=== PATIENT | male | born 1990 | race Hispanic/Latino ===

== ENCOUNTER 2018-05-08 03:18 | Emergency (ER) | payer OTHER ==
[2018-05-08 03:26] VITALS: TEMP 99.2
[2018-05-08 03:35] VITALS: O2SAT 98
--- NOTE | 2018-05-08 04:05 | ED PDOC ---
HPI: Psych/Substance Abuse Time Seen by Provider: 05/08/18 03:41 Chief Complaint (Nursing): Substance Abuse Chief Complaint (Provider): Substance Abuse ED Caveat: Intoxicated History Per: Patient, EMS History/Exam Limitations: intoxication Modifying Factor(s): Alcohol Additional Complaint(s): 28 y/o male brought to the ED by [facility] for intoxication. Patient admits to using alcohol and cocaine tonight. Patient states his found him passed out in the bathroom and she called the ambulance. Patient is unable to give history due to intoxication. No medical complaints. Past Medical History Reviewed: Historical Data, Nursing Documentation, Vital Signs Vital Signs: Last Vital Signs Temp 99.2 F 05/08/18 03:32 Pulse 74 05/08/18 03:32 Resp 18 05/08/18 03:32 BP 150/91 H 05/08/18 03:32 Pulse Ox 98 05/08/18 03:32 - Medical History Other PMH: Myocarditis - Family History Family History: States: No Known Family Hx - Allergies Allergies/Adverse Reactions: Allergies Allergy/AdvReac Type Severity Reaction Status Date / Time No Known Allergies Allergy Verified 05/08/18 03:35 Review of Systems Review Of Systems: ROS cannot be obtained secondary to pt's inabilty to answer questions. Physical Exam - Reviewed Nursing Documentation Reviewed: Yes Vital Signs Reviewed: Yes - Physical Exam Appears: Positive for: Well, Non-toxic, No Acute Distress Head Exam: Positive for: ATRAUMATIC, NORMOCEPHALIC Skin: Positive for: Normal Color, Warm, Dry Eye Exam: Positive for: EOMI, Normal appearance, PERRL Neck: Positive for: Normal, Painless ROM, Supple Cardiovascular/Chest: Positive for: Regular Rate, Rhythm. Negative for: Murmur Respiratory: Positive for: Normal Breath Sounds. Negative for: Respiratory Distress Gastrointestinal/Abdominal: Positive for: Normal Exam, Soft. Negative for: Tenderness Extremity: Positive for: Normal ROM. Negative for: Pedal Edema, Deformity Neurologic/Psych: Positive for: Alert, Oriented, Other (Slurred speech). Negative for: Motor/Sensory Deficits - Laboratory Results Result Diagrams: 05/08/18 04:30 05/08/18 04:30 - ECG O2 Sat by Pulse Oximetry: 98 (RA) Pulse Ox Interpretation: Normal Medical Decision Making Medical Decision Making: Time: 03:42 Initial Impression: 28 y/o intoxicated male Initial Plan: * EKG * Alcohol serum * CMP * Drug screen * CBC w/ diff 05:30 Labs reviewed no clinically significant abnormalities with exception of alcohol level. Patient is clinically sober for discharge in company of . Diagnosis is alcohol intoxication and cocaine abuse. Scribe Attestation: Documented by Ke Cha acting as a scribe for Kosta Gonzalez MD. Provider Scribe Attestation: All medical record entries made by the Scribe were at my direction and personally dictated by me. I have reviewed the chart and agree that the record accurately reflects my personal performance of the history, physical exam, medical decision making, and the department course for this patient. I have also personally directed, reviewed, and agree with the discharge instructions and disposition. Disposition - Clinical Impression Clinical Impression: Alcohol intoxication, Cocaine abuse - Patient ED Disposition Is Patient to be Admitted: No - Disposition Disposition: Routine/Home Disposition Time: 05:30 Condition: STABLE Additional Instructions: MIRACLE DELACRUZ, thank you for letting us take care of you today. Your provider was Kosta Gonzalez MD and you were treated for ETOH,SUBSTANCE ABUSE. The emergency medical care you received today was directed at your acute symptoms. If you were prescribed any medication, please fill it and take as directed. It may take several days for your symptoms to resolve. Return to the Emergency Department if your symptoms worsen, do not improve, or if you have any other problems. Please contact your doctor or call one of the physicians/clinics you have been referred to that are listed on the Patient Visit Information form that is included in your discharge packet. Bring any paperwork you were given at [facility] with you along with any medications you are taking to your follow up visit. Our treatment cannot replace ongoing medical care by a primary care provider outside of the emergency department. Thank you for allowing the [facility] team to be part of your care today. If you had an X-Ray or CT scan: A Radiologist will review the ED reading if any change in treatment is needed we will contact you. If you had a blood, urine, or wound culture: It will take several days for the results, if any change in treatment is needed we will contact you. If you had an STI test: It will take 48 hours for the results. Please call after 1 week if you have not heard back. Instructions: Cocaine Use Disorder, Alcohol Abuse and Alcoholism (DC) Forms: [facility] (Thai)
[2018-05-08] MEDS ORDERED: Sodium Chloride 0.9% 1,000 ML IV STA (04:12)
[2018-05-08 04:40] LABS: BASO % 0.5 % (0.0-2.0); EOS % 0.1 % (0.0-4.0); HEMOGLOBIN 14.8 g/dL (12.0-18.0); LYMPH # 1.1 K/uL (1.0-4.3); LYMPH % 11.3 % (20.0-40.0); MEAN CELL VOLUME 85.6 fl (80.0-94.0); MEAN CORPUSCULAR HEMOGLOBIN 29.6 pg (27.0-31.0); MEAN CORPUSCULAR HGB CONC 34.6 g/dL (33.0-37.0); MEAN PLATELET VOLUME 8.1 fl (7.2-11.7); MONO # 0.3 K/uL (0.0-0.8); MONO % 3.3 % (0.0-10.0); NEUT # 8.2 K/uL (1.8-7.0); NEUT % 84.8 % (50.0-75.0); NRBC % 0.3 % (0.0-0.0); RBC 5.01 Mil/uL (4.40-5.90); WHITE BLOOD COUNT 9.7 K/uL (4.8-10.8)
[2018-05-08 04:47] LABS: ALB/GLOB RATIO 1.5 (1.0-2.1); ALBUMIN 4.7 g/dL (3.5-5.0); ALT/SGPT 21 U/L (21-72); AST/SGOT 21 U/L (17-59); BLOOD UREA NITROGEN 11 mg/dl (9-20); CALCIUM 9.2 mg/dL (8.4-10.2); GFR NON-AFRICAN AMERICAN > 60
[2018-05-08 05:36] VITALS: BP 116/64; PULSE 65; RESP 16
--- NOTE | 2018-05-08 20:10 | CARD ---
APPROVED REPORT Date of service: 05/08/2018 EKG Measurement Heart [id number] <Conclusion> Normal sinus rhythm Normal Electrocardiogram
== END 2018-05-08 05:47 | disposition home or self-care (01) ==
LOC: H.ER 03:18
DX: F10.129 Alcohol abuse with intoxication, unspecified (principal); F14.10 Cocaine abuse, uncomplicated
CPT/HCPCS: 80053; 80320; 82948; 85025; 93005; 96360; 99284; J7030

== ENCOUNTER 2018-06-07 09:53 | Emergency (ER) | payer OTHER ==
[2018-06-07 09:57] VITALS: BMI 25.8
[2018-06-07 09:59] VITALS: RESP 18; TEMP 97.4
[2018-06-07] MEDS ORDERED: Naproxen 500 MG TAB PO STA (10:23)
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
[2018-06-07] MEDS ORDERED: Naproxen 500 MG TAB PO ONE (11:00)
[2018-06-07 12:45] VITALS: BP 111/72; PULSE 61
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
[2018-06-07 13:28] VITALS: O2SAT 99
== END 2018-06-07 13:48 | disposition home or self-care (01) ==
LOC: H.ER 09:53
DX: S16.1XXA Strain of muscle, fascia and tendon at neck level, initial encounter (principal); S33.5XXA Sprain of ligaments of lumbar spine, initial encounter; S39.012A Strain of muscle, fascia and tendon of lower back, initial encounter; V43.62XA Car passenger injured in collision with other type car in traffic accident, initial encounter; Y92.410 Unspecified street and highway as the place of occurrence of the external cause